=== PATIENT | female | born 1970 | race Caucasian/White ===

== ENCOUNTER 2020-11-07 14:47 | Inpatient (IN) ==
[2020-11-07] MEDS ORDERED: Ondansetron 4 MG/2 ML VIAL IVP PRN (17:10)
[2020-11-07] MEDS ORDERED: Naloxone 0.4 MG/ML INJ IVP PRN ×2 (17:10→23:48)
[2020-11-07] MEDS ORDERED: Ringers Solution, Lactated 1,000 ML IVC SCH (17:15)
[2020-11-07] MEDS ORDERED: *HR* HYDROmorphone (PF) 1 MG/ML SYRINGE IVP PRN (17:22)
[2020-11-07] MEDS ORDERED: Ketorolac 15 MG/ML VIAL IVP PRN (17:22)
[2020-11-07] MEDS ORDERED: 0.9 % Sodium Chloride 1,000 ML IVC SCH (17:30)
[2020-11-07] MEDS ORDERED: *HR* Heparin 5,000 UNIT/ML VIAL SQ SCH (18:00)
[2020-11-07] MEDS ORDERED: Piperacillin/Tazobactam 3.375 GM in 0.9 % Sodium Chloride Mini Bag 100 ML IVPB SCH (18:00)
[2020-11-07] MEDS ORDERED: Lidocaine -MPF 2% 2 ML VIAL ONE (20:01)
[2020-11-07] MEDS ORDERED: *HR* Rocuronium Bromide 50 MG/5 ML VIAL ONE (20:01)
[2020-11-07] MEDS ORDERED: Lidocaine -MPF 4% 5 ML AMPUL ONE (20:01)
[2020-11-07] MEDS ORDERED: *HR* FentaNYL (PF) 100 MCG/2 ML VIAL ONE (20:02)
[2020-11-07] MEDS ORDERED: *HR* Midazolam HCl 2 MG/2 ML VIAL ONE (20:02)
[2020-11-07] MEDS ORDERED: *HR* Propofol 200 MG/20 ML VIAL IVP ONE (20:03)
[2020-11-07] MEDS ORDERED: Famotidine 20 MG/2 ML VIAL ONE (20:12)
[2020-11-07] MEDS ORDERED: Acetaminophen IV 1,000 MG/100 ML BAG IVPB ONE (20:12)
[2020-11-07] MEDS ORDERED: *HR* HYDROMORPHONE 2 MG/ML VIAL ONE (21:40)
[2020-11-07] MEDS ORDERED: Dexamethasone 4 MG/ML VIAL ONE (21:56)
[2020-11-07] MEDS ORDERED: *HR* PHENYLEPHRINE 1,000 MCG/10 ML SYRINGE IVP ONE (21:56)
[2020-11-07] MEDS ORDERED: Ondansetron 4 MG/2 ML VIAL ONE (21:56)
[2020-11-07] MEDS ORDERED: Ketorolac 30 MG/ML VIAL ONE (22:02)
[2020-11-07] MEDS ORDERED: Sugammadex Sodium 200 MG/2 ML VIAL IV ONE (22:15)
[2020-11-07] MEDS ORDERED: *HR* Labetalol 20 MG/4 ML SYRINGE IVP PRN (22:21)
[2020-11-07] MEDS ORDERED: *HR* Labetalol 20 MG/4 ML SYRINGE IVP ONE (22:39)
[2020-11-08] MEDS: 0.9 % Sodium Chloride 1,000 ML IVC SCH ×3 (00:10→17:42)
[2020-11-08] MEDS ORDERED: Piperacillin/Tazobactam 3.375 GM VIAL ONE (01:10)
[2020-11-08] MEDS: Piperacillin/Tazobactam 3.375 GM in 0.9 % Sodium Chloride Mini Bag 100 ML IVPB SCH ×3 (01:15→17:31)
[2020-11-08] MEDS: Acetaminophen IV 1,000 MG/100 ML BAG IVPB SCH ×4 (01:16→19:56)
[2020-11-08] MEDS ORDERED: Acetaminophen IV 1,000 MG/100 ML BAG IVPB SCH (02:00)
[2020-11-08] MEDS: Ketorolac 15 MG/ML VIAL IVP PRN ×3 (03:01→22:59)
[2020-11-08] MEDS: *HR* Heparin 5,000 UNIT/ML VIAL SQ SCH ×2 (05:09→17:32)
[2020-11-08] MEDS: Chloraseptic Spray 177 ML BOTTLE MM PRN (05:09)
[2020-11-08] MEDS: *HR* HYDROmorphone (PF) 1 MG/ML SYRINGE IVP PRN ×6 (05:26→21:50)
[2020-11-08 06:54] LABS: Basophils % 0.1 %; Hematocrit 37.9 % (35.3-44.9); Hemoglobin 12.4 g/dL (11.5-15.4); Immature Granulocytes % 0.5 % (0-4); Lymphocytes # 0.7 K/mcL (0.6-4.6); Lymphocytes % 4.8 %; Mean Corpuscular HGB Conc 32.7 g/dL (31.6-35.5); Mean Corpuscular Hemoglobin 32.1 pg (28.0-33.3); Mean Corpuscular Volume 98.2 fL (83.0-100.0); Mean Platelet Volume 9.4 fL (9.4-12.4); Monocytes # 0.5 K/mcL (0.0-1.3); Monocytes % 3.6 %; Neutrophils # 13.1 K/mcL (1.6-8.9); Platelet Count 291 K/mcL (140-400); Red Blood Count 3.86 M/mcL (3.82-4.97); Red Cell Distribution Width 12.1 % (11.5-14.5); White Blood Count 14.4 K/mcL (4.3-11.1)
[2020-11-08 07:13] LABS: BUN/Creatinine Ratio 26 (6-26); Blood Urea Nitrogen 14 mg/dL (6-20); Calcium 7.7 mg/dL (8.6-10.3); Carbon Dioxide 20 mEq/L (23-29); Chloride 110 mEq/L (98-107); Glucose 133 mg/dL (70-105); Osmolality,Calculated 288 (280-300); Potassium 3.5 mEq/L (3.5-5.1); Sodium 138 mEq/L (136-145); eGFR For African Americans > 60 (> 60); eGFR For Non-African Americans > 60 (> 60)
[2020-11-09] MEDS: Piperacillin/Tazobactam 3.375 GM in 0.9 % Sodium Chloride Mini Bag 100 ML IVPB SCH ×3 (01:50→17:23)
[2020-11-09] MEDS: Acetaminophen IV 1,000 MG/100 ML BAG IVPB SCH ×4 (01:51→19:43)
[2020-11-09] MEDS: 0.9 % Sodium Chloride 1,000 ML IVC SCH ×2 (04:28→19:43)
[2020-11-09] MEDS: *HR* Heparin 5,000 UNIT/ML VIAL SQ SCH ×2 (05:28→17:24)
[2020-11-09 06:38] LABS: Basophils # 0.1 K/mcL (0.0-0.2); Basophils % 0.4 %; Eosinophils # 0.4 K/mcL (0.0-0.6); Eosinophils % 3.3 %; Hemoglobin 12.6 g/dL (11.5-15.4); Immature Granulocytes % 0.4 % (0-4); Lymphocytes % 8.3 %; Mean Corpuscular HGB Conc 31.5 g/dL (31.6-35.5); Mean Corpuscular Hemoglobin 31.9 pg (28.0-33.3); Mean Corpuscular Volume 101.3 fL (83.0-100.0); Mean Platelet Volume 9.8 fL (9.4-12.4); Monocytes # 0.6 K/mcL (0.0-1.3); Monocytes % 4.8 %; Neutrophils # 9.7 K/mcL (1.6-8.9); Platelet Count 311 K/mcL (140-400); Red Blood Count 3.95 M/mcL (3.82-4.97); Red Cell Distribution Width 11.9 % (11.5-14.5); Segmented Neutrophils % 82.8 %; White Blood Count 11.7 K/mcL (4.3-11.1)
[2020-11-09 06:55] LABS: BUN/Creatinine Ratio 29 (6-26); Blood Urea Nitrogen 14 mg/dL (6-20); Carbon Dioxide 17 mEq/L (23-29); Chloride 110 mEq/L (98-107); Glucose 80 mg/dL (70-105); Osmolality,Calculated 287 (280-300); Potassium 3.2 mEq/L (3.5-5.1); Sodium 139 mEq/L (136-145); eGFR For African Americans > 60 (> 60); eGFR For Non-African Americans > 60 (> 60)
[2020-11-09] MEDS: *HR* HYDROmorphone (PF) 1 MG/ML SYRINGE IVP PRN ×3 (08:43→19:50)
[2020-11-09] MEDS ORDERED: Potassium Chloride 40 MEQ, Lidocaine 1% 2 ML in 0.9 % Sodium Chloride 500 ML IVPB ONE (12:36)
[2020-11-09] MEDS: Ondansetron 4 MG/2 ML VIAL IVP PRN (13:54)
[2020-11-09] MEDS: *HR* OxyCODONE Immed Rel 5 MG TABLET PO PRN (19:41)
[2020-11-10] MEDS: Piperacillin/Tazobactam 3.375 GM in 0.9 % Sodium Chloride Mini Bag 100 ML IVPB SCH ×3 (01:44→18:06)
[2020-11-10] MEDS: Acetaminophen IV 1,000 MG/100 ML BAG IVPB SCH ×4 (01:44→19:59)
[2020-11-10] MEDS: *HR* OxyCODONE Immed Rel 5 MG TABLET PO PRN ×4 (01:46→20:25)
[2020-11-10] MEDS: *HR* Heparin 5,000 UNIT/ML VIAL SQ SCH ×2 (05:48→18:05)
[2020-11-10] MEDS: 0.9 % Sodium Chloride 1,000 ML IVC SCH (06:05)
[2020-11-10 06:16] LABS: Basophils % 0.4 %; Eosinophils # 0.3 K/mcL (0.0-0.6); Eosinophils % 3.4 %; Hematocrit 37.3 % (35.3-44.9); Hemoglobin 12.1 g/dL (11.5-15.4); Immature Granulocytes % 0.5 % (0-4); Lymphocytes # 0.8 K/mcL (0.6-4.6); Lymphocytes % 8.5 %; Mean Corpuscular HGB Conc 32.4 g/dL (31.6-35.5); Mean Corpuscular Hemoglobin 32.2 pg (28.0-33.3); Mean Corpuscular Volume 99.2 fL (83.0-100.0); Mean Platelet Volume 9.6 fL (9.4-12.4); Monocytes # 0.6 K/mcL (0.0-1.3); Monocytes % 6.1 %; Neutrophils # 7.8 K/mcL (1.6-8.9); Platelet Count 327 K/mcL (140-400); Red Blood Count 3.76 M/mcL (3.82-4.97); Red Cell Distribution Width 11.9 % (11.5-14.5); Segmented Neutrophils % 81.1 %; White Blood Count 9.6 K/mcL (4.3-11.1)
[2020-11-10 07:00] LABS: BUN/Creatinine Ratio 18 (6-26); Blood Urea Nitrogen 7 mg/dL (6-20); Carbon Dioxide 20 mEq/L (23-29); Chloride 109 mEq/L (98-107); Glucose 103 mg/dL (70-105); Potassium 3.3 mEq/L (3.5-5.1); Sodium 137 mEq/L (136-145); eGFR For African Americans > 60 (> 60); eGFR For Non-African Americans > 60 (> 60)
[2020-11-10 07:01] LABS: Calcium 7.7 mg/dL (8.6-10.3); Osmolality,Calculated 282 (280-300)
[2020-11-10] MEDS ORDERED: Piperacillin/Tazobactam 3.375 GM VIAL ONE (10:50)
[2020-11-10] MEDS ORDERED: Isovue-370 500 ML BOTTLE IVP ONE (14:25)
[2020-11-10] MEDS: *HR* HYDROmorphone (PF) 1 MG/ML SYRINGE IVP PRN ×2 (19:40→22:45)
[2020-11-10] MEDS: Simethicone 80 MG TAB.CHEW PO PRN (22:12)
[2020-11-11] MEDS: Ondansetron 4 MG/2 ML VIAL IVP PRN (02:44)
[2020-11-11] MEDS: Acetaminophen IV 1,000 MG/100 ML BAG IVPB SCH ×4 (02:44→19:34)
[2020-11-11] MEDS: Piperacillin/Tazobactam 3.375 GM in 0.9 % Sodium Chloride Mini Bag 100 ML IVPB SCH ×3 (02:49→18:53)
[2020-11-11] MEDS: *HR* HYDROmorphone (PF) 1 MG/ML SYRINGE IVP PRN ×4 (02:51→21:45)
[2020-11-11] MEDS: *HR* Heparin 5,000 UNIT/ML VIAL SQ SCH ×2 (05:43→18:52)
[2020-11-11] MEDS ORDERED: Lidocaine Jelly 11 ml Syringe MM ONE (09:14)
[2020-11-11] MEDS ORDERED: Tetracaine/Benzocaine/Butamben 1 SPRAY AEROSOL MM ONE (09:15)
[2020-11-11] MEDS: Chloraseptic Spray 177 ML BOTTLE MM PRN (11:02)
[2020-11-11] MEDS: 0.9 % Sodium Chloride 1,000 ML IVC SCH (13:20)
[2020-11-11] MEDS ORDERED: Gadolinium Contrast Agent (WT Based) IV PRN (15:28)
[2020-11-12] MEDS: Piperacillin/Tazobactam 3.375 GM in 0.9 % Sodium Chloride Mini Bag 100 ML IVPB SCH ×3 (01:38→17:00)
[2020-11-12] MEDS: 0.9 % Sodium Chloride 1,000 ML IVC SCH ×2 (01:39→17:34)
[2020-11-12] MEDS: Chloraseptic Spray 177 ML BOTTLE MM PRN (01:40)
[2020-11-12] MEDS: *HR* HYDROmorphone (PF) 1 MG/ML SYRINGE IVP PRN (02:50)
[2020-11-12] MEDS: Acetaminophen IV 1,000 MG/100 ML BAG IVPB SCH ×2 (03:26→07:50)
[2020-11-12 05:44] LABS: Basophils # 0.1 K/mcL (0.0-0.2); Basophils % 0.9 %; Eosinophils # 0.3 K/mcL (0.0-0.6); Eosinophils % 3.1 %; Hematocrit 38.7 % (35.3-44.9); Hemoglobin 12.8 g/dL (11.5-15.4); Immature Granulocytes % 0.9 % (0-4); Lymphocytes # 1.3 K/mcL (0.6-4.6); Mean Corpuscular HGB Conc 33.1 g/dL (31.6-35.5); Mean Corpuscular Hemoglobin 32.5 pg (28.0-33.3); Mean Corpuscular Volume 98.2 fL (83.0-100.0); Mean Platelet Volume 9.2 fL (9.4-12.4); Monocytes # 0.8 K/mcL (0.0-1.3); Monocytes % 7.9 %; Neutrophils # 7.1 K/mcL (1.6-8.9); Platelet Count 428 K/mcL (140-400); Red Blood Count 3.94 M/mcL (3.82-4.97); Red Cell Distribution Width 11.7 % (11.5-14.5); Segmented Neutrophils % 74.2 %; White Blood Count 9.6 K/mcL (4.3-11.1)
[2020-11-12] MEDS: *HR* Heparin 5,000 UNIT/ML VIAL SQ SCH ×2 (05:50→17:03)
[2020-11-12 05:58] LABS: BUN/Creatinine Ratio 26 (6-26); Blood Urea Nitrogen 11 mg/dL (6-20); Carbon Dioxide 24 mEq/L (23-29); Chloride 108 mEq/L (98-107); Glucose 89 mg/dL (70-105); Osmolality,Calculated 295 (280-300); Sodium 143 mEq/L (136-145); eGFR For African Americans > 60 (> 60); eGFR For Non-African Americans > 60 (> 60)
[2020-11-12] MEDS ORDERED: Potassium Chloride 40 MEQ, Lidocaine 1% 2 ML in D5% in Water 500 ML IVPB ONE (08:18)
[2020-11-12 09:24] LABS: Magnesium 1.8 mg/dL (1.6-2.6)
[2020-11-13] MEDS ORDERED: Piperacillin/Tazobactam 3.375 GM VIAL ONE (02:44)
[2020-11-13] MEDS: Piperacillin/Tazobactam 3.375 GM in 0.9 % Sodium Chloride Mini Bag 100 ML IVPB SCH ×3 (02:52→17:11)
[2020-11-13] MEDS: 0.9 % Sodium Chloride 1,000 ML IVC SCH (02:52)
[2020-11-13] MEDS: Simethicone 80 MG TAB.CHEW PO PRN (02:56)
[2020-11-13 05:46] LABS: Hematocrit 36.8 % (35.3-44.9); Hemoglobin 12.3 g/dL (11.5-15.4); Mean Corpuscular HGB Conc 33.4 g/dL (31.6-35.5); Mean Corpuscular Hemoglobin 31.6 pg (28.0-33.3); Mean Corpuscular Volume 94.6 fL (83.0-100.0); Mean Platelet Volume 8.9 fL (9.4-12.4); Platelet Count 420 K/mcL (140-400); Red Blood Count 3.89 M/mcL (3.82-4.97); White Blood Count 10.4 K/mcL (4.3-11.1)
[2020-11-13] MEDS: *HR* Heparin 5,000 UNIT/ML VIAL SQ SCH ×2 (06:34→17:15)
[2020-11-13 07:49] LABS: BUN/Creatinine Ratio 24 (6-26); Blood Urea Nitrogen 8 mg/dL (6-20); Calcium 8.1 mg/dL (8.6-10.3); Carbon Dioxide 23 mEq/L (23-29); Chloride 108 mEq/L (98-107); Glucose 104 mg/dL (70-105); Magnesium 1.7 mg/dL (1.6-2.6); Osmolality,Calculated 289 (280-300); Potassium 3.2 mEq/L (3.5-5.1); Sodium 140 mEq/L (136-145); eGFR For African Americans > 60 (> 60); eGFR For Non-African Americans > 60 (> 60)
[2020-11-14] MEDS: Simethicone 80 MG TAB.CHEW PO PRN (02:52)
[2020-11-14] MEDS: Piperacillin/Tazobactam 3.375 GM in 0.9 % Sodium Chloride Mini Bag 100 ML IVPB SCH (02:53)
[2020-11-14 04:13] LABS: Alanine Aminotransferase 30 Units/L (7-52); Albumin 3.2 g/dL (3.5-5.7); Albumin/Globulin Ratio 1.2 (1.1-2.2); Alkaline Phosphatase 48 Units/L (34-104); Aspartate Amino Transferase 23 Units/L (13-39); BUN/Creatinine Ratio 25 (6-26); Bilirubin,Total 0.4 mg/dL (0.3-1.0); Blood Urea Nitrogen 8 mg/dL (6-20); Calcium 8.3 mg/dL (8.6-10.3); Carbon Dioxide 22 mEq/L (23-29); Chloride 106 mEq/L (98-107); Globulin 2.6 g/dL (2.4-3.5); Glucose 106 mg/dL (70-105); Osmolality,Calculated 283 (280-300); Potassium 3.5 mEq/L (3.5-5.1); Sodium 137 mEq/L (136-145); Total Protein 5.8 g/dL (6.4-8.9); eGFR For African Americans > 60 (> 60); eGFR For Non-African Americans > 60 (> 60)
[2020-11-14] MEDS: *HR* Heparin 5,000 UNIT/ML VIAL SQ SCH (06:17)
[2020-11-14 06:49] VITALS: BP 146/93
== END 2020-11-14 11:01 | disposition home or self-care (01) | DRG 231 ==
LOC: 3ANU → SUATTDRO 16:17
PROVIDERS: ADMIT Internal Medicine; ATTEND Internal Medicine

== ENCOUNTER 2021-06-12 07:28 | Inpatient (IN) ==
[2021-06-12] MEDS ORDERED: Ondansetron 4 MG/2 ML VIAL IVP PRN ×2 (07:37→13:51)
[2021-06-12] MEDS ORDERED: *HR* FentaNYL (PF) 100 MCG/2 ML VIAL IVP PRN (07:37)
[2021-06-12] MEDS ORDERED: *HR* HYDROmorphone PF 0.5 MG/0.5 ML SYRINGE IVP PRN (07:37)
[2021-06-12] MEDS ORDERED: Ringers Solution, Lactated 1,000 ML IVC SCH ×2 (07:45→13:51)
[2021-06-12] MEDS ORDERED: cefOXitin 2,000 MG in Water for inj. (sterile) 10 ML IVP ONE (07:45)
[2021-06-12] MEDS ORDERED: Ipratropium/Albuterol Neb 3 ML IH ONE (07:53)
[2021-06-12] MEDS ORDERED: *HR* FentaNYL (PF) 100 MCG/2 ML VIAL ONE (09:09)
[2021-06-12] MEDS ORDERED: *HR* Succinylcholine 200 MG/10 ML VIAL IVP ONE (09:09)
[2021-06-12] MEDS ORDERED: *HR* Propofol 200 MG/20 ML VIAL IVP ONE (09:09)
[2021-06-12] MEDS ORDERED: *HR* Rocuronium Bromide 50 MG/5 ML VIAL ONE ×2 (09:09→11:02)
[2021-06-12] MEDS ORDERED: Ondansetron 4 MG/2 ML VIAL ONE (09:09)
[2021-06-12] MEDS ORDERED: Lidocaine HCL 4 ML Topical Solution (Laryng-O-Jet Kit Sterile Pak) TP ONE (09:09)
[2021-06-12] MEDS ORDERED: Lidocaine -MPF 2% 2 ML VIAL ONE (09:09)
[2021-06-12] MEDS ORDERED: *HR* Midazolam HCl 2 MG/2 ML VIAL ONE (09:09)
[2021-06-12] MEDS ORDERED: Acetaminophen IV 1,000 MG/100 ML BAG IVPB ONE ×2 (09:19→10:00)
[2021-06-12] MEDS ORDERED: *HR* HYDROMORPHONE 2 MG/ML VIAL ONE (10:41)
[2021-06-12] MEDS ORDERED: Naloxone 0.4 MG/ML INJ IVP PRN (13:51)
[2021-06-12] MEDS: *HR* OxyCODONE/APAP 5/325 TABLET PO PRN ×2 (15:24→21:34)
[2021-06-12] MEDS: Ketorolac 30 MG/ML VIAL IVP SCH ×2 (18:03→23:11)
[2021-06-12] MEDS: cefOXitin 1,000 MG in Water for inj. (sterile) 10 ML IVP SCH ×2 (18:54→23:11)
[2021-06-13] MEDS: *HR* OxyCODONE/APAP 5/325 TABLET PO PRN ×3 (03:56→15:54)
[2021-06-13 05:06] LABS: Basophils % 0.1 %; Hematocrit 41.7 % (35.3-44.9); Immature Granulocytes % 0.6 % (0-4); Lymphocytes # 1.6 K/mcL (0.6-4.6); Lymphocytes % 10.2 %; Mean Corpuscular HGB Conc 33.6 g/dL (31.6-35.5); Mean Corpuscular Hemoglobin 32.3 pg (28.0-33.3); Mean Corpuscular Volume 96.3 fL (83.0-100.0); Mean Platelet Volume 9.7 fL (9.4-12.4); Monocytes % 6.3 %; Neutrophils # 13.1 K/mcL (1.6-8.9); Platelet Count 266 K/mcL (140-400); Red Blood Count 4.33 M/mcL (3.82-4.97); Red Cell Distribution Width 12.6 % (11.5-14.5); Segmented Neutrophils % 82.8 %; White Blood Count 15.8 K/mcL (4.3-11.1)
[2021-06-13] MEDS: Ketorolac 30 MG/ML VIAL IVP SCH ×3 (05:17→17:27)
[2021-06-13 05:24] LABS: BUN/Creatinine Ratio 22 (6-26); Blood Urea Nitrogen 12 mg/dL (6-20); Calcium 8.6 mg/dL (8.6-10.3); Carbon Dioxide 24 mEq/L (23-29); Chloride 103 mEq/L (98-107); Glucose 115 mg/dL (70-105); Osmolality,Calculated 283 (280-300); Potassium 3.7 mEq/L (3.5-5.1); Sodium 136 mEq/L (136-145); eGFR For African Americans > 60 (> 60); eGFR For Non-African Americans > 60 (> 60)
[2021-06-13] MEDS: cefOXitin 1,000 MG in Water for inj. (sterile) 10 ML IVP SCH (08:11)
[2021-06-13] MEDS: *HR* Heparin 5,000 UNIT/ML VIAL SQ SCH ×2 (15:45→17:26)
[2021-06-14] MEDS: *HR* OxyCODONE/APAP 5/325 TABLET PO PRN ×3 (04:04→17:00)
[2021-06-14] MEDS: Ketorolac 30 MG/ML VIAL IVP SCH ×3 (06:15→11:14)
[2021-06-14] MEDS: *HR* Heparin 5,000 UNIT/ML VIAL SQ SCH (06:15)
[2021-06-14 07:57] VITALS: O2SAT 88
[2021-06-14 10:53] VITALS: BP 134/82; PULSE 72; TEMP 98.5
== END 2021-06-14 17:18 | disposition home or self-care (01) | DRG 231 ==
LOC: SAMDAY 07:28 → 3NENU 13:50
PROVIDERS: ADMIT Surgery; ATTEND Surgery